=== PATIENT | male | born 1950 | race Caucasian/White ===

== ENCOUNTER 2020-12-12 06:56 | Day surgery (SDC) | payer MEDICARE, OTHER ==
[~2020-12-12 06:56] MED LIST: Lactated Ringers 1,000 ML IV SCH; Sodium Chloride 0.9% 10 ML Syringe FLUSH PRN
[2020-12-12] MEDS ORDERED: Midazolam 1 MG/ML 2 ML SDV IV ONE (06:57)
[2020-12-12] MEDS ORDERED: fentaNYL 100 MCG/2 ML SDV IV ONE (06:57)
[2020-12-12] MEDS ORDERED: acetaZOLAMIDE 500 MG Cap.ER PO ONE (08:30)
--- NOTE | 2020-12-12 13:32 | OR ---
DATE OF OPERATION: 12/12/2020 SURGEON: Tonya Aguilar MD PREOPERATIVE DIAGNOSES: 1. Visually significant cataract, right eye. 2. Floppy iris syndrome, right eye. 3. Primary open-angle glaucoma, mild stage, right eye. POSTOPERATIVE DIAGNOSES: 1. Visually significant cataract, right eye. 2. Floppy iris syndrome, right eye. 3. Primary open-angle glaucoma, mild stage, right eye. PROCEDURES PERFORMED: 1. Complex phacoemulsification with intraocular lens placement, right eye. CPT 41053. 2. Insertion of anterior segment aqueous drainage device without extraocular reservoir, internal approach, into the trabecular meshwork using iStent inject, CPT 0191T and 0376T. ASSISTANTS: None. ANESTHESIA: Local with sedation. COMPLICATIONS: None. BLOOD LOSS: None. IMPLANTS: 1. An Orion ACU0T0, 14.0 diopter lens implanted, serial number [id number]. 2. iStent inject, serial number is [id number]. CDE: 2.86. DESCRIPTION OF PROCEDURE: After risks and benefits were reviewed with the patient, consent was obtained in the preoperative area, and the operative eye was marked with a surgical pen. In the preoperative area, a pledget was used to dilate the pupil consisting of a mixture of phenylephrine 10%, cyclopentolate 2%, moxifloxacin 0.5%, and bupivacaine 0.75%. The patient was taken to the operating room, where a time-out was performed, and the patient was placed under monitored anesthesia care. Topical tetracaine was used for anesthesia. The operative eye was prepped and draped for ophthalmic surgery, and the microscope was brought into position and focused. A paracentesis incision was made, followed by injection of preservative-free 1% lidocaine into the anterior chamber, followed by injection of Viscoat into the anterior chamber. A microkeratome blade was used to make a corneal limbal incision temporally. A Malyugin ring 7.0 mm was used to retract the iris due to floppy iris syndrome. A cystotome was used to make the beginning of the capsulorrhexis, which was carried around 360 degrees in a curvilinear fashion using Utrata forceps. A Altamirano cannula with BSS was used to hydrodissect and hydrodelineate the nucleus. The nucleus was removed in a divide and conquer manner using phacoemulsification. Irrigation and aspiration were used to remove the remaining cortical material. Provisc was used to inflate the capsular bag, and a pre-loaded Orion ACU0T0, 14.0 diopter lens diopter lens, serial number [id number] was injected into the capsular bag. A Sinskey hook was used to position and center the lens. The Malyugin ring was removed from the anterior chamber and discarded. Next, attention was turned to the iStent inject part of the surgery. Microscope was rotated to help visualize the angle and further Provisc was injected into the anterior chamber to balloon up the anterior chamber until it was filled with Provisc or Viscoat. The patient was asked to look down. A small amount of Provisc was siphoned down to the cornea and a gonioprism was used to help visualize the angle. Microscope was zoomed in. The iStent inject using the serial number as I already mentioned was then brought onto the field into the anterior chamber. The protective cover was retracted and the iStent inject was then injected into trabecular meshwork and Schlemm canal. This was repeated a second time for the second inject a few clock hours away. Next, irrigation and aspiration was used to remove any remaining viscoelastic and cortical material from the anterior chamber. BSS on a cannula was used to inflate the anterior chamber and hydrate the wound. The wound was checked and found to be watertight. 1 mg of Moxifloxacin was injected into the anterior chamber. Drapes were removed and the eye was cleaned. A drop of brimonidine 0.2% and a drop of TobraDex was placed. The eye was shielded, and the patient was taken to the recovery room in stable condition. /[id number] ELENI/NESS
== END 2020-12-12 09:32 | disposition home or self-care (01) ==
LOC: FB.SDS 06:56
PROVIDERS: ATTEND Ophthalmology
DX: H40.1111 Primary open-angle glaucoma, right eye, mild stage (principal); E10.36 Type 1 diabetes mellitus with diabetic cataract; H21.81 Floppy iris syndrome; E10.40 Type 1 diabetes mellitus with diabetic neuropathy, unspecified; E10.22 Type 1 diabetes mellitus with diabetic chronic kidney disease; I12.9 Hypertensive chronic kidney disease with stage 1 through stage 4 chronic kidney disease, or unspecified chronic kidney disease; N18.30 Chronic kidney disease, stage 3 unspecified; E78.5 Hyperlipidemia, unspecified; D63.1 Anemia in chronic kidney disease; Z79.899 Other long term (current) drug therapy; Z98.890 Other specified postprocedural states; Z88.8 Allergy status to other drugs, medicaments and biological substances
CPT/HCPCS: 00142; 0191T; 0376T; 66982; 82962; A9270; C1783; J2250; J3010; J7120; V2632

== ENCOUNTER 2020-12-26 06:45 | Day surgery (SDC) | payer MEDICARE ==
[2020-12-26] MEDS ORDERED: fentaNYL 100 MCG/2 ML SDV IV ONE (06:46)
[2020-12-26] MEDS ORDERED: Midazolam 1 MG/ML 2 ML SDV IV ONE (06:46)
[2020-12-26] MEDS ORDERED: acetaZOLAMIDE 500 MG Cap.ER PO ONE (07:30)
--- NOTE | 2020-12-26 13:25 | OR ---
DATE OF OPERATION: 12/26/2020 SURGEON: Tonya Aguilar MD PREOPERATIVE DIAGNOSES: 1. Visually significant cataract, left eye. 2. Primary open-angle glaucoma, mild stage, left eye. POSTOPERATIVE DIAGNOSES: 1. Visually significant cataract, left eye. 2. Primary open-angle glaucoma, mild stage, left eye. PROCEDURES PERFORMED: 1. Phacoemulsification with intraocular lens placement, left eye. 2. Insertion of anterior segment aqueous drainage device without extraocular reservoir, internal approach, into the trabecular meshwork using iStent inject, CPT 0191T and 0376T. ASSISTANTS: None. ANESTHESIA: Local with sedation. COMPLICATIONS: None. BLOOD LOSS: None. IMPLANTS: 1. Orion ACU0T0 14.0 diopter lens implanted, serial number [id number]. 2. IStent inject, serial number [id number]. CDE: 1.39. DESCRIPTION OF PROCEDURE: After risks and benefits were reviewed with the patient, consent was obtained in the preoperative area, and the operative eye was marked with a surgical pen. In the preoperative area, a pledget was used to dilate the pupil consisting of a mixture of phenylephrine 10%, cyclopentolate 2%, moxifloxacin 0.5%, and bupivacaine 0.75%. The patient was taken to the operating room, where a time-out was performed, and the patient was placed under monitored anesthesia care. Topical tetracaine was used for anesthesia. The operative eye was prepped and draped for ophthalmic surgery, and the microscope was brought into position and focused. A paracentesis incision was made, followed by injection of preservative-free 1% lidocaine into the anterior chamber, followed by injection of Viscoat into the anterior chamber. A microkeratome blade was used to make a corneal limbal incision temporally. A cystotome was used to make the beginning of the capsulorrhexis, which was carried around 360 degrees in a curvilinear fashion using Utrata forceps. A Altamirano cannula with BSS was used to hydrodissect and hydrodelineate the nucleus. The nucleus was removed in a divide and conquer manner using phacoemulsification. Irrigation and aspiration were used to remove the remaining cortical material. Provisc was used to inflate the capsular bag, and a pre-loaded Orion ACU0T0 14.0 diopter lens, serial number [id number] was injected into the capsular bag. A Sinskey hook was used to position and center the lens. Attention was turned to iStent inject part of the surgery. Microscope was rotated to help visualize the angle and further Provisc was injected into the anterior chamber to balloon up the anterior chamber until it was filled with Provisc or Viscoat. The patient was asked to look down. A small amount of Provisc was siphoned down to the cornea and a gonioprism was used to help visualize the angle. Microscope was zoomed in. The iStent inject using the serial number [id number] was then brought onto the field and into the anterior chamber. The protective cover was retracted and the iStent inject was then injected into trabecular meshwork and Schlemm canal. This was repeated a second time for the second inject a couple clock hours away. Next, irrigation and aspiration was used to remove any remaining viscoelastic and cortical material from the anterior chamber. BSS on a cannula was used to inflate the anterior chamber and hydrate the wound. The wound was checked and found to be watertight. 1 mg of Moxifloxacin was injected into the anterior chamber. Drapes were removed and the eye was cleaned. A drop of brimonidine 0.2% and a drop of TobraDex was placed. The eye was shielded, and the patient was taken to the recovery room in stable condition. /[id number] ELENI/NESS
== END 2020-12-26 08:50 | disposition home or self-care (01) ==
LOC: FB.SDS 06:45
PROVIDERS: ATTEND Ophthalmology
DX: H16.223 Keratoconjunctivitis sicca, not specified as Sjogren's, bilateral (principal); H40.1131 Primary open-angle glaucoma, bilateral, mild stage; E10.3292 Type 1 diabetes mellitus with mild nonproliferative diabetic retinopathy without macular edema, left eye; E10.36 Type 1 diabetes mellitus with diabetic cataract; H25.813 Combined forms of age-related cataract, bilateral; H52.13 Myopia, bilateral; I12.9 Hypertensive chronic kidney disease with stage 1 through stage 4 chronic kidney disease, or unspecified chronic kidney disease; N18.30 Chronic kidney disease, stage 3 unspecified; E10.22 Type 1 diabetes mellitus with diabetic chronic kidney disease; E10.21 Type 1 diabetes mellitus with diabetic nephropathy; E78.5 Hyperlipidemia, unspecified; Z98.890 Other specified postprocedural states; Z79.899 Other long term (current) drug therapy; Z79.84 Long term (current) use of oral hypoglycemic drugs
CPT/HCPCS: 00142-QZ; 82962; A9270-GY; C1783; J2250; J3010; J7120; V2632

== ENCOUNTER 2023-11-29 17:10 | Emergency (ER) | payer MEDICARE ==
[2023-11-29] MEDS ORDERED: traMADol 50 MG Tab PO ONE (17:11)
[2023-11-29 18:28] LABS: BASOPHILS ABSOLUTE AUTO 0.1 x10-3/uL (0.0-0.3); BASOPHILS PERCENT AUTO 0.8 % (0.3-3.8); EOSINOPHILS ABSOLUTE AUTO 0.1 x10-3/uL (0.0-0.6); EOSINOPHILS PERCENT AUTO 1.7 % (0.1-6.8); HEMATOCRIT 38.5 % (38.3-50.1); HEMOGLOBIN 12.8 g/dL (12.9-17.7); LYMPHOCYTES ABSOLUTE AUTO 1.3 x10-3/uL (0.5-4.5); LYMPHOCYTES PERCENT AUTO 19.3 % (15.8-45.3); MEAN CORPUSCULAR HGB CONC 33.1 g/dL (28.7-35.3); MEAN CORPUSCULAR VOLUME 84.6 fL (80.8-98.7); MEAN PLATELET VOLUME 6.6 fL (6.7-11.0); MONOCYTES ABSOLUTE AUTO 0.6 x10-3/uL (0.0-1.2); MONOCYTES PERCENT AUTO 8.2 % (5.5-15.2); NEUTROPHILS ABSOLUTE AUTO 4.9 x10-3/uL (1.7-6.9); PLATELET COUNT,PLT 206 x10(3)uL (117-477); RED BLOOD CELL COUNT 4.55 x10(6)uL (3.90-5.90); RED CELL DISTRIBUTION WIDTH 14.3 % (12.4-15.0)
[2023-11-29 18:34] LABS: BLOOD UREA NITROGEN,BUN 47 mg/dL (7-18); BUN/CREATININE RATIO 26.1 (9-20); CALCIUM 8.7 mg/dL (8.6-10.2); CARBON DIOXIDE,CO2 28 mmol/L (21-32); CHLORIDE,CL 102 mmol/L (100-110); CREATININE 1.8 mg/dL (0.70-1.30); EST CRCL DRUG DOSING (CG) 44.34 mL/min; ESTIMATED GFR 40 mL/min (>60); GLUCOSE RANDOM 251 mg/dL (80-116); POTASSIUM,K 5.8 mmol/L (3.5-5.3); SODIUM,NA 137 mmol/L (135-145)
[2023-11-29 18:41] LABS: A/G RATIO 1.1; ALANINE AMINOTRANSFERASE,ALT 53 U/L (12-36); ALBUMIN 3.5 g/dL (3.2-4.6); ALKALINE PHOSPHATASE 180 IU/L (56-112); ASPARTATE AMNIOTRANSFERASE,AST 37 IU/L (5-25); BILIRUBIN TOTAL 0.4 mg/dL (0.1-1.3); MAGNESIUM 2.1 mg/dL (1.8-2.5); PROTEIN TOTAL,TP 6.6 g/dL (6.0-8.0)
[2023-11-29 19:09] LABS: BILIRUBIN,URINE NEGATIVE (NEGATIVE); GLUCOSE,URINE NORMAL (NORMAL); KETONES,URINE NEGATIVE (NEGATIVE); LEUKOCYTE ESTERASE,URINE NEGATIVE (NEGATIVE); NITRITE,URINE NEGATIVE (NEGATIVE); OCCULT BLOOD,URINE NEGATIVE (NEGATIVE); PROTEIN,URINE 500 mg/dL (NEGATIVE); UROBILINOGEN,URINE NORMAL (NEGATIVE)
[2023-11-29 19:17] LABS: APPEARANCE,URINE CLEAR (CLEAR); BACTERIA,URINE FEW (NS); COLOR,URINE YELLOW (YELLOW); FINE GRANULAR CASTS,URINE OCCASIONAL (NS); RBC,URINE 0-5 (0-5); SQUAMOUS EPITHELIAL CELLS,UR RARE (NS,R,O); WBC,URINE 0-5 (0-5)
== END 2023-11-29 21:05 | disposition home or self-care (01) ==
LOC: FB.ED 17:10
DX: S20.221A Contusion of right back wall of thorax, initial encounter (principal); S22.41XA Multiple fractures of ribs, right side, initial encounter for closed fracture; N18.9 Chronic kidney disease, unspecified; I12.0 Hypertensive chronic kidney disease with stage 5 chronic kidney disease or end stage renal disease; E78.00 Pure hypercholesterolemia, unspecified; E10.9 Type 1 diabetes mellitus without complications; Z95.1 Presence of aortocoronary bypass graft; Z79.82 Long term (current) use of aspirin; Z79.4 Long term (current) use of insulin; Z88.7 Allergy status to serum and vaccine; Z88.6 Allergy status to analgesic agent; Z79.84 Long term (current) use of oral hypoglycemic drugs; Z79.899 Other long term (current) drug therapy
CPT/HCPCS: 36415; 71101-RT; 74176; 80053; 81001; 83735; 85025; 99285; A9270-GY

== ENCOUNTER 2024-06-03 23:51 | Emergency (ER) | payer MEDICARE ==
[2024-06-04 00:40] LABS: BASOPHILS ABSOLUTE AUTO 0.1 x10-3/uL (0.0-0.3); BASOPHILS PERCENT AUTO 0.6 % (0.3-3.8); EOSINOPHILS ABSOLUTE AUTO 0.1 x10-3/uL (0.0-0.6); EOSINOPHILS PERCENT AUTO 1.3 % (0.1-6.8); HEMATOCRIT 36.9 % (38.3-50.1); HEMOGLOBIN 12.1 g/dL (12.9-17.7); LYMPHOCYTES ABSOLUTE AUTO 1.1 x10-3/uL (0.5-4.5); MEAN CORPUSCULAR HEMOGLOBIN 27.9 pg (27.0-33.3); MEAN CORPUSCULAR HGB CONC 32.7 g/dL (28.7-35.3); MEAN CORPUSCULAR VOLUME 85.3 fL (80.8-98.7); MEAN PLATELET VOLUME 6.6 fL (6.7-11.0); MONOCYTES ABSOLUTE AUTO 0.6 x10-3/uL (0.0-1.2); MONOCYTES PERCENT AUTO 7.2 % (5.5-15.2); NEUTROPHILS ABSOLUTE AUTO 6.6 x10-3/uL (1.7-6.9); NEUTROPHILS PERCENT AUTO 77.9 % (40.3-71.8); PLATELET COUNT,PLT 264 x10(3)uL (117-477); RED BLOOD CELL COUNT 4.32 x10(6)uL (3.90-5.90); RED CELL DISTRIBUTION WIDTH 14.4 % (12.4-15.0); WHITE BLOOD CELL COUNT,WBC 8.5 x10-3/uL (3.2-10.1)
[2024-06-04 00:43] LABS: BLOOD UREA NITROGEN,BUN 45 mg/dL (7-18); CALCIUM 8.5 mg/dL (8.6-10.2); CARBON DIOXIDE,CO2 25 mmol/L (21-32); CHLORIDE,CL 107 mmol/L (100-110); CREATININE 1.8 mg/dL (0.70-1.30); EST CRCL DRUG DOSING (CG) 43.13 mL/min; ESTIMATED GFR 40 mL/min (>60); GLUCOSE RANDOM 174 mg/dL (80-116); POTASSIUM,K 5.3 mmol/L (3.5-5.3); SODIUM,NA 141 mmol/L (135-145)
[2024-06-04 00:49] LABS: A/G RATIO 0.9; ALANINE AMINOTRANSFERASE,ALT 29 U/L (12-36); ALBUMIN 3.1 g/dL (3.2-4.6); ALKALINE PHOSPHATASE 177 IU/L (56-112); ASPARTATE AMNIOTRANSFERASE,AST 19 IU/L (5-25); BILIRUBIN TOTAL 0.5 mg/dL (0.1-1.3); PROTEIN TOTAL,TP 6.4 g/dL (6.0-8.0)
[2024-06-04] MEDS: Sodium Chloride 0.9% 10 ML Syringe FLUSH PRN (00:50)
[2024-06-04 01:00] LABS: TROPONIN I 192.1 pg/mL (4.0-60.3)
[2024-06-04] MEDS: Labetalol 20 MG/4 ML Syringe IVPUSH ONE (01:04)
[2024-06-04 01:29] LABS: PROTHROMBIN TIME 10.4 sec (9.0-11.1); PTT,PARTIAL THROMBOPLSTIN TIME 27.4 SECONDS (24.4-33.2)
[2024-06-04] MEDS: Aspirin 81 MG Tab.Chew PO ONE (01:32)
[2024-06-04] MEDS: Metolazone 5 MG Tab PO STA (01:33)
[2024-06-04] MEDS: Furosemide 40 MG/4 ML VIAL IVPUSH ONE (01:33)
[2024-06-04] MEDS: hydrALAZINE 20 MG/ML SDV IVPUSH ONE ×2 (01:50→04:18)
[2024-06-04] MEDS: cloNIDine 0.1 MG Tab PO ONE (04:17)
== END 2024-06-04 04:25 ==
LOC: FB.ED 23:51
DX: I16.9 Hypertensive crisis, unspecified (principal); I13.0 Hypertensive heart and chronic kidney disease with heart failure and stage 1 through stage 4 chronic kidney disease, or unspecified chronic kidney disease; I50.9 Heart failure, unspecified; N18.9 Chronic kidney disease, unspecified; E10.22 Type 1 diabetes mellitus with diabetic chronic kidney disease; E78.00 Pure hypercholesterolemia, unspecified; Z95.5 Presence of coronary angioplasty implant and graft; Z86.16 Personal history of COVID-19; Z88.7 Allergy status to serum and vaccine; Z88.6 Allergy status to analgesic agent; Z79.82 Long term (current) use of aspirin; Z79.899 Other long term (current) drug therapy; Z79.4 Long term (current) use of insulin; Z95.1 Presence of aortocoronary bypass graft; R79.89 Other specified abnormal findings of blood chemistry; Z94.0 Kidney transplant status
CPT/HCPCS: 36415; 71045; 80053; 82947; 83880; 84484; 85025; 85610; 85730; 87651; 93005; 96374; 96375; 96376; 99285; A9270; J0360; J1920; J1940; J3490